=== PATIENT | female | born 1950 | race Native Hawaiian/Other Pacific Islander ===

== ENCOUNTER 2016-12-14 15:22 | Outpatient (CLI) | payer OTHER ==
[~2016-12-14 15:22] MED LIST: BENZ100C8 PO; CEFD300C2 PO; CELEXA10 MG OR; CIPROFLOXACIN0.2 % OT; DICL1GEL2 TOP; FLUC150T PO; HYDR-2748 PO; HYDR25TA60 PO; IMITREX100 MG OR; MOME50SP; MORPHINE PUMP; OXYB5TAB56 PO; SINGULAIR10 MG OR; SOMA350 MG PO; TOPAMAX100 MG OR
[2016-12-14 16:17] LABS: PLATELET COUNT 281 K/uL (152-353)
[2016-12-14 16:18] LABS: POTASSIUM 4.6 mmol/L (3.6-5.2)
== END 2016-12-14 16:22 | disposition home or self-care (01) ==
LOC: LAB 15:22
PROVIDERS: Nurse Practitioner Family
DX: E11.9 Type 2 diabetes mellitus without complications (principal); I10 Essential (primary) hypertension; N30.01 Acute cystitis with hematuria; Z79.899 Other long term (current) drug therapy; Z51.81 Encounter for therapeutic drug level monitoring
CPT/HCPCS: 80053; 80061; 81000; 83036; 84439; 84443; 85027; 87077; 87086; 87088; 87186

== ENCOUNTER 2017-03-08 13:12 | Outpatient (CLI) | payer OTHER ==
[2017-03-08 13:36] LABS: PLATELET COUNT 237 K/uL (152-353)
== END 2017-03-08 14:00 | disposition home or self-care (01) ==
LOC: LAB 13:12
PROVIDERS: Nurse Practitioner Family
DX: E11.9 Type 2 diabetes mellitus without complications (principal); I10 Essential (primary) hypertension; E78.4 Other hyperlipidemia; E55.9 Vitamin D deficiency, unspecified
CPT/HCPCS: 80053; 80061; 82306; 82607; 83036; 84439; 84443; 85027

== ENCOUNTER 2017-06-22 14:29 | Outpatient (CLI) | payer OTHER ==
[2017-06-22 14:57] LABS: POTASSIUM 4.8 mmol/L (3.6-5.2)
[2017-06-22 15:03] LABS: PLATELET COUNT 253 K/uL (152-353)
== END 2017-06-22 15:30 | disposition home or self-care (01) ==
LOC: LAB 14:29
PROVIDERS: Nurse Practitioner Family
DX: E11.9 Type 2 diabetes mellitus without complications (principal); E55.9 Vitamin D deficiency, unspecified; E78.4 Other hyperlipidemia; I10 Essential (primary) hypertension; Z79.899 Other long term (current) drug therapy; Z51.81 Encounter for therapeutic drug level monitoring
CPT/HCPCS: 80053; 80061; 82306; 83036; 84436; 84443; 85027

== ENCOUNTER 2017-07-04 08:20 | Outpatient (CLI) | payer OTHER | END 2017-07-04 18:59 | disposition home or self-care (01) | LOC: MAMMO 08:20 | DX: Z12.31 Encounter for screening mammogram for malignant neoplasm of breast (principal); M81.0 Age-related osteoporosis without current pathological fracture ==